=== PATIENT | male | born 1975 | race American Indian/Alaskan Native ===

== ENCOUNTER 2018-02-01 14:47 | Emergency (ER) | payer BC ==
[2018-02-01 14:59] VITALS: BP 159/77; PULSE 53; RESP 18; TEMP 98.1; O2SAT 100
[2018-02-01] MEDS ORDERED: Tdap Vaccine 0.5 ml Vial (10-64 yrs) IM ONE (15:30)
--- NOTE | 2018-02-01 15:48 | ED PDOC ---
HPI: Skin/Bite Injury Time Seen by Provider: 02/01/18 14:48 Chief Complaint (Nursing): Bite Chief Complaint (Provider): Bite History Per: Patient History/Exam Limitations: no limitations Onset/Duration Of Symptoms: Other (prior to arrival) Current Symptoms Are (Timing): Still Present Additional Complaint(s): 42-year-old male presenting for evaluation of bite wounds to left hand prior to arrival. Patient states he was at the park with his dog when another dog, who often plays with his dog, approached his dog to play. He states the other dog became aggressive and when he tried to separate them the other dog bit his left hand. He states hes fairly certain the dog is up to date on shots, but he will contact the veterinary office tomorrow when theyre open for the dogs shots record. Patient states he is familiar with the other dog and mooner. Past Medical History Reviewed: Historical Data, Nursing Documentation, Vital Signs Vital Signs: Last Vital Signs Temp 98.1 F 02/01/18 14:56 Pulse 53 L 02/01/18 14:56 Resp 18 02/01/18 14:56 BP 159/77 H 02/01/18 14:56 Pulse Ox 100 02/01/18 15:51 - Medical History PMH: No Chronic Diseases - Surgical History Surgical History: No Surg Hx - Family History Family History: States: Unknown Family Hx - Home Medications Home Medications: Ambulatory Orders Medication Instructions Recorded Amoxicillin/Clavulanate [Augmentin 1 tab PO BID #20 tab 02/01/18 875 MG-125 MG] - Allergies Allergies/Adverse Reactions: Allergies Allergy/AdvReac Type Severity Reaction Status Date / Time No Known Allergies Allergy Verified 02/01/18 14:56 Review of Systems ROS Statement: Except As Marked, All Systems Reviewed And Found Negative Skin: Positive for: Lesions (multiple bite wounds to left hand) Physical Exam - Reviewed Nursing Documentation Reviewed: Yes Vital Signs Reviewed: Yes - Physical Exam Appears: Positive for: Non-toxic, No Acute Distress Head Exam: Positive for: ATRAUMATIC Skin: Positive for: Normal Color, Warm Eye Exam: Positive for: Normal appearance Neck: Positive for: Normal Respiratory: Negative for: Respiratory Distress Extremity: Positive for: Other (bite wound to left posterior index finger, left posterior mid hand, left medial anterior hand) Neurologic/Psych: Positive for: Alert - ECG O2 Sat by Pulse Oximetry: 100 (RA) Pulse Ox Interpretation: Normal Medical Decision Making Medical Decision Making: Plan: -Tetanus Wound irrigated. Antibiotic ointment and dressing applied. Scribe Attestation: Documented by Julio Cesar Bustamante, acting as a scribe for Isamar Escobar PA-C. Provider Scribe Attestation: All medical record entries made by the scribe were at my direction and personally dictated by me. I have reviewed the chart and agree that the record accurately reflects my personal performance of the history, physical exam, medical decision making, and the department course for this patient. I have also personally directed, reviewed, and agree with the discharge instructions and disposition. Disposition - Clinical Impression Clinical Impression: Animal bite wound, Tetanus toxoid vaccination administered at current visit - Patient ED Disposition Is Patient to be Admitted: No Counseled Patient/Family Regarding: Diagnosis, Need For Followup, Rx Given - Disposition Disposition: Routine/Home Disposition Time: 16:13 Condition: GOOD Prescriptions: Amoxicillin/Clavulanate [Augmentin 875 MG-125 MG] 1 tab PO BID #20 tab Instructions: Animal and Human Bites Forms: [employer] (Green[place]ic)
== END 2018-02-01 16:49 | disposition home or self-care (01) ==
LOC: H.ER 14:47
DX: S61.452A Open bite of left hand, initial encounter (principal); W54.0XXA Bitten by dog, initial encounter; Y92.830 Public park as the place of occurrence of the external cause